=== PATIENT | female | born 1995 | race Hispanic/Latino ===

== ENCOUNTER 2021-04-26 22:15 | Inpatient (IN) | payer OTHER ==
[~2021-04-26] VITALS: Ht 165.1 cm; Wt 115.0 kg
[2021-04-26 22:23] VITALS: BP 92/55
[2021-04-26] MEDS ORDERED: ONDANSETRON 4MG INJ IVP ONE (22:45)
[2021-04-26] MEDS ORDERED: SODIUM CHLORIDE 0.9% IV ONE (22:45)
[2021-04-26] MEDS ORDERED: FAMOTIDINE/PF 20 MG/2 ML VIAL IV ONE (22:45)
[2021-04-26] MEDS ORDERED: METOCLOPRAMIDE 10 MG/2 ML VIAL IVP ONE (22:45)
[2021-04-26 22:55] LABS: BASOPHILS % (AUTO) 0.3 % (0.0-5.0); EOSINOPHILS % (AUTO) 0.1 % (0.0-8.0); HEMATOCRIT 37.6 % (36-48); LYMPHOCYTES % (AUTO) 4.2 % (21.0-51.0); MEAN CORPUSCULAR HEMOGLOBIN 28.8 pg (27.0-33.0); MEAN CORPUSCULAR VOLUME 87.2 fL (79-99); MONOCYTES % (AUTO) 8.5 % (3.0-13.0); NEUTROPHILS % (AUTO) 85.9 % (40.0-77.0); PLATELET COUNT (AUTO) 287 K/uL (130-400); RED BLOOD CELL COUNT(AUTO) 4.31 MIL/uL (4.00-5.50); RED CELL DISTRIBUTION WIDTH 14.6 % (11.0-15.5); WHITE BLOOD COUNT (AUTO) 26.5 K/uL (4.8-10.8)
[2021-04-26 23:06] LABS: APPEARANCE,URINE Turbid (CLEAR); BILIRUBIN,URINE Small (NEGATIVE); COLOR,URINE Dark Yellow (YELLOW); GLUCOSE, URINE (UA) Negative (NEGATIVE); KETONES,URINE Trace mg/dL (NEGATIVE); LEUKOCYTE ESTERASE ,URINE Large (NEGATIVE); NITRATE,URINE Positive (NEGATIVE); OCCULT BLOOD,URINE Large (NEGATIVE); PROTEIN,URINE POS 2+ mg/dL (NEGATIVE)
[2021-04-26 23:07] LABS: CREATININE 1.1 mg/dL (0.5-1.5); POTASSIUM 3.3 mmol/L (3.5-5.1)
[2021-04-26 23:12] LABS: ALBUMIN 3.1 g/dL (3.5-5.0); BILIRUBIN,TOTAL 1.5 mg/dL (0.2-1.0); TOTAL PROTEIN, SERUM 8.2 g/dL (6.0-8.3)
[2021-04-26 23:20] LABS: BACTERIA,URINE Moderate /HPF (None Seen); WBC,URINE Full Field /HPF (0-1)
[2021-04-26 23:24] LABS: INR 1.12 (0.85-1.15); PROTHROMBIN TIME 12.1 SEC (9.6-11.6)
[2021-04-26 23:26] LABS: PARTIAL THROMBOPLASTIN TIME 30.4 SEC (26.3-35.5)
[2021-04-26] MEDS ORDERED: KETOROLAC 30MG VIAL (30MG/ML) IV ONE (23:30)
[2021-04-26] MEDS ORDERED: 0.9% SODIUM CHLORIDE 50 ML IV BAG IV ONE (23:30)
[2021-04-26] MEDS ORDERED: PIP/TAZ ZOSYN 3.375G 3.375 GM VIAL IVPB ONE (23:30)
[2021-04-26] MEDS ORDERED: IOHEXOL 350 MG/ML 100ML INFUS..BTL IV ONE (23:35)
[2021-04-27] VITALS (11 sets, daily range): BP systolic 94–155; BP diastolic 48–75
[2021-04-27] MEDS ORDERED: NITROGLYCERIN 0.4 MG SL TAB SL PRN (01:00)
[2021-04-27] MEDS ORDERED: ACETAMINOPHEN 325 MG TAB PO PRN (01:00)
[2021-04-27] MEDS ORDERED: ONDANSETRON 4MG INJ IV PRN (01:00)
[2021-04-27] MEDS ORDERED: METOCLOPRAMIDE 10 MG/2 ML VIAL ONE (01:08)
[2021-04-27] MEDS ORDERED: ONDANSETRON 4MG INJ ONE (01:09)
[2021-04-27] MEDS ORDERED: FAMOTIDINE/PF 20 MG/2 ML VIAL IV ONE (01:09)
[2021-04-27] MEDS ORDERED: ZOSYN 3.375GM+NS 50ML 50 ML IV ONE (01:09)
[2021-04-27] MEDS ORDERED: KETOROLAC 30MG VIAL (30MG/ML) ONE (01:09)
[2021-04-27] MEDS ORDERED: KCL 20 MEQ ERTAB PO ONE (01:15)
[2021-04-27] MEDS: PANTOPRAZOLE 40 MG/VIAL IVP SCH ×2 (01:24→20:43)
[2021-04-27] MEDS: SODIUM CHLORIDE 0.9% 1000ML 1,000 ML IV SCH (01:27)
[2021-04-27 01:45] LABS: HEMOGLOBIN A1C 5.5 % (4.0-6.0)
[2021-04-27] MEDS ORDERED: MAGNESIUM 2GM PREMIX 50ML 50 ML IV SCH (02:15)
[2021-04-27] MEDS ORDERED: ZOSYN 3.375GM+NS 50ML 50 ML IV SCH (05:00)
[2021-04-27] MEDS ORDERED: MORPHINE 2 MG SYG (2MG/1ML) IVP ONE (05:00)
[2021-04-27] MEDS ORDERED: SODIUM CHLORIDE 0.9% 1000ML 1,000 ML IV ONE (06:13)
[2021-04-27] MEDS: ACETAMINOPHEN 325 MG TAB PO PRN ×3 (06:22→18:17)
[2021-04-27 07:00] LABS: HEMATOCRIT 37.9 % (36-48); MEAN CORPUSCULAR HGB CONC 32.5 g/dL (32.0-36.0); MEAN CORPUSCULAR VOLUME 89.4 fL (79-99); PLATELET COUNT (AUTO) 233 K/uL (130-400); RED BLOOD CELL COUNT(AUTO) 4.24 MIL/uL (4.00-5.50); RED CELL DISTRIBUTION WIDTH 15.1 % (11.0-15.5); WHITE BLOOD COUNT (AUTO) 22.1 K/uL (4.8-10.8)
[2021-04-27 07:15] LABS: ALBUMIN 2.9 g/dL (3.5-5.0); BILIRUBIN,TOTAL 1.5 mg/dL (0.2-1.0); CREATININE 0.7 mg/dL (0.5-1.5); MAGNESIUM 2.6 mg/dL (1.80-2.40); TOTAL PROTEIN, SERUM 8.4 g/dL (6.0-8.3)
[2021-04-27 07:24] LABS: BAND NEUTROPHILS % (MANUAL) 3 % (0-2); LYMPHOCYTES % (MANUAL) 6 % (22-44); MAN.DIFF COMMENT-IMPRESSION MANUAL DIFFERENTIAL; MONOCYTES % (MANUAL) 2 % (2-9); PLATELET MORPHOLOGY COMMENT ADEQUATE; SEGMENTED NEUTROPHILS % 89 % (40-70)
[2021-04-27 08:17] LABS: POTASSIUM 4.2 mmol/L (3.5-5.1)
[2021-04-27] MEDS: ENOXAPARIN SODIUM 30 MG/0.3 ML SQ SCH (09:47)
[2021-04-27] MEDS: FAMOTIDINE 20MG TAB 20 MG TAB PO SCH ×2 (09:47→20:42)
[2021-04-27] MEDS: ZOSYN 3.375GM+NS 50ML 50 ML IV SCH ×2 (14:22→20:42)
[2021-04-27] MEDS ORDERED: KETOROLAC 15MG/ML VIAL (15MG/ML) ONE (15:24)
[2021-04-27] MEDS ORDERED: KETOROLAC 15MG/ML VIAL (15MG/ML) IV ONE (15:30)
[2021-04-27] MEDS ORDERED: SODIUM CHLORIDE 0.9% 50 ML IV ONE (20:27)
[2021-04-28] MEDS ORDERED: MORPHINE 2 MG SYG (2MG/1ML) IVP ONE (01:00)
[2021-04-28 07:00] VITALS: BP 108/43
[2021-04-28 07:28] LABS: BASOPHILS % (AUTO) 0.4 % (0.0-5.0); EOSINOPHILS % (AUTO) 0.1 % (0.0-8.0); HEMATOCRIT 32.6 % (36-48); LYMPHOCYTES % (AUTO) 11.7 % (21.0-51.0); MEAN CORPUSCULAR HEMOGLOBIN 28.2 pg (27.0-33.0); MEAN CORPUSCULAR HGB CONC 31.9 g/dL (32.0-36.0); MEAN CORPUSCULAR VOLUME 88.3 fL (79-99); MONOCYTES % (AUTO) 11.5 % (3.0-13.0); NEUTROPHILS % (AUTO) 75.6 % (40.0-77.0); PLATELET COUNT (AUTO) 268 K/uL (130-400); RED BLOOD CELL COUNT(AUTO) 3.69 MIL/uL (4.00-5.50); RED CELL DISTRIBUTION WIDTH 14.8 % (11.0-15.5); WHITE BLOOD COUNT (AUTO) 13.6 K/uL (4.8-10.8)
[2021-04-28] MEDS: SODIUM CHLORIDE 0.9% 1000ML 1,000 ML IV SCH ×3 (07:36→18:08)
[2021-04-28 07:41] LABS: ALBUMIN 2.3 g/dL (3.5-5.0); BILIRUBIN,TOTAL 0.6 mg/dL (0.2-1.0); CREATININE 0.6 mg/dL (0.5-1.5); MAGNESIUM 2.1 mg/dL (1.80-2.40); POTASSIUM 4.1 mmol/L (3.5-5.1); TOTAL PROTEIN, SERUM 6.7 g/dL (6.0-8.3)
[2021-04-28] MEDS: ACETAMINOPHEN 325 MG TAB PO PRN (08:29)
[2021-04-28] MEDS: ZOSYN 3.375GM+NS 50ML 50 ML IV SCH ×3 (08:30→21:29)
[2021-04-28] MEDS: FAMOTIDINE 20MG TAB 20 MG TAB PO SCH ×2 (08:31→20:37)
[2021-04-28] MEDS: ENOXAPARIN SODIUM 30 MG/0.3 ML SQ SCH (08:31)
[2021-04-28 11:45] VITALS: BP 125/62
[2021-04-28] MEDS: APAP-CODEINE 300/30MG TAB PO PRN (16:00)
[2021-04-28 18:39] VITALS: BP 131/78
[2021-04-28 19:12] VITALS: BP 108/72
[2021-04-28 21:45] VITALS: BP 136/83
[2021-04-29] VITALS: BP 123/71
[2021-04-29 04:00] VITALS: BP 125/78
[2021-04-29] MEDS: ZOSYN 3.375GM+NS 50ML 50 ML IV SCH (04:42)
[2021-04-29] MEDS: SODIUM CHLORIDE 0.9% 1000ML 1,000 ML IV SCH (04:42)
[2021-04-29] MEDS: APAP-CODEINE 300/30MG TAB PO PRN (05:01)
[2021-04-29 05:04] LABS: BASOPHILS % (AUTO) 0.5 % (0.0-5.0); EOSINOPHILS % (AUTO) 1.3 % (0.0-8.0); HEMATOCRIT 31.8 % (36-48); LYMPHOCYTES % (AUTO) 15.7 % (21.0-51.0); MEAN CORPUSCULAR HEMOGLOBIN 28.7 pg (27.0-33.0); MEAN CORPUSCULAR HGB CONC 32.7 g/dL (32.0-36.0); MEAN CORPUSCULAR VOLUME 87.6 fL (79-99); MONOCYTES % (AUTO) 12.4 % (3.0-13.0); NEUTROPHILS % (AUTO) 69.4 % (40.0-77.0); PLATELET COUNT (AUTO) 280 K/uL (130-400); RED BLOOD CELL COUNT(AUTO) 3.63 MIL/uL (4.00-5.50); RED CELL DISTRIBUTION WIDTH 14.8 % (11.0-15.5); WHITE BLOOD COUNT (AUTO) 11.4 K/uL (4.8-10.8)
[2021-04-29 05:42] LABS: CREATININE 0.7 mg/dL (0.5-1.5)
[2021-04-29 08:00] VITALS: BP 121/69
[2021-04-29] MEDS ORDERED: LEVO750T46 PO (08:42)
[2021-04-29] MEDS ORDERED: GUAI600T50 PO (08:42)
[2021-04-29] MEDS ORDERED: KETO10 PO (08:42)
[2021-04-29] MEDS ORDERED: ACET-66 PO (08:42)
[2021-04-29] MEDS ORDERED: KETOROLAC 15MG/ML VIAL (15MG/ML) IV SCH (09:00)
[2021-04-29] MEDS: FAMOTIDINE 20MG TAB 20 MG TAB PO SCH (10:21)
[2021-04-29 11:56] VITALS: BP 131/86
== END 2021-04-29 14:00 | disposition home or self-care (01) | DRG 872 ==
LOC: EDH 22:15 → EDHIP 22:16 → 3AH 04-28 21:41
PROVIDERS: ADMIT Internal Medicine; ATTEND Internal Medicine
DX: A41.9 Sepsis, unspecified organism (principal); N10 Acute pyelonephritis; E87.1 Hypo-osmolality and hyponatremia; R65.20 Severe sepsis without septic shock; E87.6 Hypokalemia; E66.9 Obesity, unspecified; N28.81 Hypertrophy of kidney; K59.00 Constipation, unspecified; B96.20 Unspecified Escherichia coli [E. coli] as the cause of diseases classified elsewhere; Z68.35 Body mass index [BMI] 35.0-35.9, adult; Z87.442 Personal history of urinary calculi; Z82.49 Family history of ischemic heart disease and other diseases of the circulatory system
CPT/HCPCS: 36415; 71045; 74177; 80048; 80053; 81001; 83036; 83605; 83690; 83735; 84145; 84703; 85025; 85610; 85730; 87040; 87077; 87088; 87186; 93005; C9113; G0378; J1650; J1885; J2405; J2543; J2765; J3475; J3490; J7030; Q9967